=== PATIENT | male | born 1935 | race Caucasian/White ===

== ENCOUNTER 2017-09-15 22:45 | Inpatient (IN) | payer MEDICARE ==
[2017-09-15] MEDS ORDERED: ACETAMINOPHEN 325 MG TABLET. PO (23:45)
[2017-09-15] MEDS ORDERED: QUEtiapine 25 MG TABLET. PO (23:45)
[2017-09-15] MEDS ORDERED: METHYL SALICYLATE/MENTHOL TOPICAL OINTMENT 29GM TUBE. TP (23:45)
[2017-09-15] MEDS ORDERED: OLANZapine 2.5 MG TABLET PO (23:45)
[2017-09-15] MEDS ORDERED: MAG HYDROX/ALUMINUM HYD/SIMETH 30 ML ORAL.SUSP PO (23:45)
[2017-09-15] MEDS ORDERED: MAGNESIUM HYDROXIDE 2,400 MG/30 ML ORAL.SUSP. PO (23:45)
[2017-09-16] MEDS: IV DEXTROSE 5 %-0.45 % NACL 1,000 ML IV ×2 (00:51→14:06)
[2017-09-16 00:54] LABS: ADD MAN DIFF? NO
[2017-09-16 01:04] LABS: BASO % 1 % (0-3); EOS # 0.1 x10^3/uL (0.0-0.7); EOS % 2 % (0-3); HEMATOCRIT 35.9 % (39.0-53.0); HEMOGLOBIN 11.8 g/dL (13.0-17.5); LYMPH # 0.4 x10^3/uL (1.0-4.8); LYMPH % 8 % (24-48); MEAN CORPUSCULAR HEMOGLOBIN 31 pg (25-35); MEAN CORPUSCULAR HGB CONC 33 g/dL (31-37); MEAN CORPUSCULAR VOLUME 94 fL (79-100); MONO # 0.5 x10^3/uL (0.0-1.1); MONO % 11 % (0-9); NEUT # 3.5 x10^3uL (1.8-7.7); NEUT % 78 % (31-73); PLATELET COUNT 118 x10^3/uL (140-400); RED BLOOD COUNT 3.84 x10^6/uL (4.30-5.70); RED CELL DISTRIBUTION WIDTH 20.5 % (11.5-14.5); WHITE BLOOD COUNT 4.5 x10^3/uL (4.0-11.0)
[2017-09-16 01:26] LABS: ALBUMIN 3.1 g/dL (3.4-5.0); ALBUMIN/GLOBULIN RATIO 0.8 (1.0-1.7); ALK PHOS 82 U/L (46-116); ALT (SGPT) 17 U/L (16-63); ANION GAP 7 (6-14); AST (SGOT) 26 U/L (15-37); BLOOD UREA NITROGEN 14 mg/dL (8-26); BUN/CREATININE RATIO 16 (6-20); CALCIUM 8.5 mg/dL (8.5-10.1); CARBON DIOXIDE 29 mmol/L (21-32); CHLORIDE 106 mmol/L (98-107); CREATININE 0.9 mg/dL (0.7-1.3); GLUCOSE 108 mg/dL (70-99); POTASSIUM 4.2 mmol/L (3.5-5.1); SODIUM 142 mmol/L (136-145); TOTAL BILIRUBIN 1.1 mg/dL (0.2-1.0); TOTAL PROTEIN 6.9 g/dL (6.4-8.2)
[2017-09-16 02:53] LABS: MICROCYTOSIS SLIGHT; PLT ESTIMATE DECREASED (ADEQUATE); POIKILOCYTOSIS SLIGHT
[2017-09-16] MEDS: LEVOTHYROXINE 125 MCG TABLET PO (06:17)
[2017-09-16] MEDS: PANTOPRAZOLE 40 MG TABLET.DR. PO (07:30)
[2017-09-16] MEDS: CARVEDILOL 6.25 MG TABLET. PO ×2 (07:35→13:57)
[2017-09-16] MEDS: ASPIRIN 325 MG TABLET PO (07:35)
[2017-09-16] MEDS: CLOPIDOGREL BISULFATE 75 MG TABLET PO (07:36)
[2017-09-16] MEDS: FERROUS SULFATE 325 MG TABLET. PO (07:36)
[2017-09-16] MEDS: GABAPENTIN 300 MG CAPSULE. PO ×3 (07:36→20:48)
[2017-09-16] MEDS: LISINOPRIL 20 MG TABLET PO (07:36)
[2017-09-16] MEDS: FUROSEMIDE 20 MG TABLET PO (07:36)
[2017-09-16] MEDS: FINASTERIDE 5 MG TABLET. PO (07:37)
[2017-09-16] MEDS: SERTRALINE 50 MG TABLET. PO (07:37)
[2017-09-16] MEDS: QUEtiapine 25 MG TABLET. PO ×2 (07:37→13:56)
[2017-09-16] MEDS: CHOLECALCIFEROL (VITAMIN D3) 5,000 UNIT CAPSULE PO (07:37)
[2017-09-16] MEDS: OLANZapine IM 10 MG VIAL. IM ×3 (09:22→21:20)
[2017-09-16] MEDS ORDERED: DEXTROSE 50% 25 GM / 50ML DISP.SYRIN. IV (15:15)
[2017-09-16 16:54] LABS: POC GLUCOSE 87 mg/dL (70-99)
[2017-09-16] MEDS: INSULIN LISPRO 300 UNITS/3 ML INSULN.PEN. SQ (17:00)
[2017-09-16] MEDS: MIRTAZAPINE 7.5 MG TABLET. PO (20:48)
[2017-09-16] MEDS: ATORVASTATIN CALCIUM 40 MG TABLET. PO (20:48)
[2017-09-16] MEDS: QUEtiapine 50 MG TAB.ER.24H. PO (20:48)
[2017-09-16] MEDS: DONEPEZIL HCL 10 MG TABLET. PO (20:48)
[2017-09-16] MEDS: HEPARIN PF for SUB-Q USE 5,000 UNIT/0.5 ML VIAL. SQ (21:00)
[2017-09-16 21:13] LABS: MRSA BY PCR Negative (Negative)
[2017-09-16 21:20] LABS: POC GLUCOSE 97 mg/dL (70-99)
[2017-09-17] MEDS: IV DEXTROSE 5 %-0.45 % NACL 1,000 ML IV ×3 (00:12→20:12)
[2017-09-17] MEDS: OLANZapine IM 10 MG VIAL. IM ×2 (03:33→11:17)
[2017-09-17] MEDS: LEVOTHYROXINE 125 MCG TABLET PO (05:37)
[2017-09-17 06:18] LABS: ADD MAN DIFF? NO
[2017-09-17 06:21] LABS: BASO % 1 % (0-3); EOS # 0.2 x10^3/uL (0.0-0.7); EOS % 6 % (0-3); HEMATOCRIT 35.5 % (39.0-53.0); HEMOGLOBIN 11.5 g/dL (13.0-17.5); LYMPH # 0.7 x10^3/uL (1.0-4.8); LYMPH % 17 % (24-48); MEAN CORPUSCULAR HEMOGLOBIN 31 pg (25-35); MEAN CORPUSCULAR HGB CONC 32 g/dL (31-37); MEAN CORPUSCULAR VOLUME 95 fL (79-100); MONO # 0.5 x10^3/uL (0.0-1.1); MONO % 13 % (0-9); NEUT # 2.5 x10^3uL (1.8-7.7); NEUT % 63 % (31-73); PLATELET COUNT 104 x10^3/uL (140-400); RED BLOOD COUNT 3.74 x10^6/uL (4.30-5.70); RED CELL DISTRIBUTION WIDTH 20.3 % (11.5-14.5)
[2017-09-17 06:37] LABS: ANION GAP 6 (6-14); BLOOD UREA NITROGEN 11 mg/dL (8-26); CALCIUM 8.6 mg/dL (8.5-10.1); CARBON DIOXIDE 32 mmol/L (21-32); CHLORIDE 106 mmol/L (98-107); CREATININE 0.8 mg/dL (0.7-1.3); GFR 92.8; GLUCOSE 111 mg/dL (70-99); POTASSIUM 3.5 mmol/L (3.5-5.1); SODIUM 144 mmol/L (136-145)
[2017-09-17] MEDS: PANTOPRAZOLE 40 MG TABLET.DR. PO (07:30)
[2017-09-17] MEDS: ASPIRIN 325 MG TABLET PO (08:00)
[2017-09-17] MEDS: CLOPIDOGREL BISULFATE 75 MG TABLET PO (08:00)
[2017-09-17] MEDS: FERROUS SULFATE 325 MG TABLET. PO (08:00)
[2017-09-17] MEDS: INSULIN LISPRO 300 UNITS/3 ML INSULN.PEN. SQ ×3 (08:00→17:00)
[2017-09-17] MEDS: CARVEDILOL 6.25 MG TABLET. PO ×2 (08:00→12:14)
[2017-09-17] MEDS: FUROSEMIDE 20 MG TABLET PO (08:36)
[2017-09-17] MEDS: GABAPENTIN 300 MG CAPSULE. PO ×3 (08:37→19:15)
[2017-09-17] MEDS: LISINOPRIL 20 MG TABLET PO (08:37)
[2017-09-17] MEDS: FINASTERIDE 5 MG TABLET. PO (08:37)
[2017-09-17] MEDS: CHOLECALCIFEROL (VITAMIN D3) 5,000 UNIT CAPSULE PO (08:38)
[2017-09-17] MEDS: QUEtiapine 25 MG TABLET. PO ×2 (08:38→12:14)
[2017-09-17] MEDS: SERTRALINE 50 MG TABLET. PO (08:38)
[2017-09-17] MEDS: HEPARIN PF for SUB-Q USE 5,000 UNIT/0.5 ML VIAL. SQ ×2 (09:00→20:35)
[2017-09-17 13:43] LABS: POC GLUCOSE 108 mg/dL (70-99)
[2017-09-17 13:43] LABS: POC GLUCOSE 114 mg/dL (70-99)
[2017-09-17 17:05] LABS: POC GLUCOSE 113 mg/dL (70-99)
[2017-09-17] MEDS: DONEPEZIL HCL 10 MG TABLET. PO (19:15)
[2017-09-17] MEDS: ATORVASTATIN CALCIUM 40 MG TABLET. PO (19:15)
[2017-09-17] MEDS: MIRTAZAPINE 7.5 MG TABLET. PO (19:16)
[2017-09-17] MEDS: QUEtiapine 50 MG TAB.ER.24H. PO (19:16)
[2017-09-17 20:39] LABS: POC GLUCOSE 112 mg/dL (70-99)
[2017-09-18 04:17] LABS: ADD MAN DIFF? NO
[2017-09-18 04:29] LABS: BASO # 0.1 x10^3/uL (0.0-0.2); BASO % 1 % (0-3); EOS # 0.1 x10^3/uL (0.0-0.7); EOS % 3 % (0-3); HEMATOCRIT 32.1 % (39.0-53.0); HEMOGLOBIN 10.7 g/dL (13.0-17.5); LYMPH # 0.6 x10^3/uL (1.0-4.8); LYMPH % 13 % (24-48); MEAN CORPUSCULAR HEMOGLOBIN 31 pg (25-35); MEAN CORPUSCULAR HGB CONC 34 g/dL (31-37); MEAN CORPUSCULAR VOLUME 94 fL (79-100); MONO # 0.7 x10^3/uL (0.0-1.1); MONO % 14 % (0-9); NEUT # 3.3 x10^3uL (1.8-7.7); NEUT % 70 % (31-73); PLATELET COUNT 114 x10^3/uL (140-400); RED BLOOD COUNT 3.42 x10^6/uL (4.30-5.70); RED CELL DISTRIBUTION WIDTH 19.8 % (11.5-14.5); WHITE BLOOD COUNT 4.7 x10^3/uL (4.0-11.0)
[2017-09-18 04:51] LABS: ALBUMIN 2.8 g/dL (3.4-5.0); ALBUMIN/GLOBULIN RATIO 0.8 (1.0-1.7); ALK PHOS 80 U/L (46-116); ALT (SGPT) 15 U/L (16-63); ANION GAP 6 (6-14); AST (SGOT) 21 U/L (15-37); BLOOD UREA NITROGEN 9 mg/dL (8-26); BUN/CREATININE RATIO 11 (6-20); CALCIUM 8.4 mg/dL (8.5-10.1); CARBON DIOXIDE 31 mmol/L (21-32); CHLORIDE 106 mmol/L (98-107); CREATININE 0.8 mg/dL (0.7-1.3); GFR 92.8; GLUCOSE 117 mg/dL (70-99); POTASSIUM 3.3 mmol/L (3.5-5.1); SODIUM 143 mmol/L (136-145); TOTAL BILIRUBIN 1.2 mg/dL (0.2-1.0); TOTAL PROTEIN 6.3 g/dL (6.4-8.2)
[2017-09-18] MEDS: LEVOTHYROXINE 125 MCG TABLET PO (07:00)
[2017-09-18] MEDS: PANTOPRAZOLE 40 MG TABLET.DR. PO (07:30)
[2017-09-18] MEDS: ASPIRIN 325 MG TABLET PO (08:00)
[2017-09-18] MEDS: CARVEDILOL 6.25 MG TABLET. PO ×2 (08:00→15:49)
[2017-09-18] MEDS: CLOPIDOGREL BISULFATE 75 MG TABLET PO (08:00)
[2017-09-18] MEDS: FERROUS SULFATE 325 MG TABLET. PO (08:00)
[2017-09-18 08:23] LABS: POC GLUCOSE 112 mg/dL (70-99)
[2017-09-18] MEDS: FINASTERIDE 5 MG TABLET. PO (08:26)
[2017-09-18] MEDS: QUEtiapine 25 MG TABLET. PO ×2 (08:26→15:49)
[2017-09-18] MEDS: LISINOPRIL 20 MG TABLET PO (08:26)
[2017-09-18] MEDS: FUROSEMIDE 20 MG TABLET PO (08:26)
[2017-09-18] MEDS: GABAPENTIN 300 MG CAPSULE. PO ×3 (08:26→21:00)
[2017-09-18] MEDS: CHOLECALCIFEROL (VITAMIN D3) 5,000 UNIT CAPSULE PO (08:27)
[2017-09-18] MEDS: SERTRALINE 50 MG TABLET. PO (08:27)
[2017-09-18] MEDS: INSULIN LISPRO 300 UNITS/3 ML INSULN.PEN. SQ ×3 (08:28→16:15)
[2017-09-18] MEDS: IV DEXTROSE 5 %-0.45 % NACL 1,000 ML IV (08:30)
[2017-09-18] MEDS: HEPARIN PF for SUB-Q USE 5,000 UNIT/0.5 ML VIAL. SQ ×2 (08:42→22:07)
[2017-09-18] MEDS: POTASSIUM CL 40MEQ D5-0.45NACL 1,000 ML IV ×2 (10:29→21:03)
[2017-09-18 11:29] LABS: POC GLUCOSE 102 mg/dL (70-99)
[2017-09-18] MEDS: PANTOPRAZOLE IV PUSH 40 MG VIAL. IVP (12:26)
[2017-09-18 16:16] LABS: POC GLUCOSE 110 mg/dL (70-99)
[2017-09-18] MEDS: LIDOCAINE (700MG/PATCH) PATCH. TD (16:38)
[2017-09-18] MEDS: OLANZapine IM 10 MG VIAL. IM (20:35)
[2017-09-18] MEDS: MIRTAZAPINE 7.5 MG TABLET. PO (21:00)
[2017-09-18] MEDS: DONEPEZIL HCL 10 MG TABLET. PO (21:00)
[2017-09-18] MEDS: PATCH REMOVAL. MC (21:00)
[2017-09-18] MEDS: QUEtiapine 50 MG TAB.ER.24H. PO (21:00)
[2017-09-18] MEDS: ATORVASTATIN CALCIUM 40 MG TABLET. PO (21:00)
[2017-09-18] MEDS: ZIPRASIDONE IM 20 MG VIAL. IM (21:44)
[2017-09-19 05:34] LABS: HEMATOCRIT 33.4 % (39.0-53.0); HEMOGLOBIN 11.1 g/dL (13.0-17.5); MEAN CORPUSCULAR HEMOGLOBIN 31 pg (25-35); MEAN CORPUSCULAR HGB CONC 33 g/dL (31-37); MEAN CORPUSCULAR VOLUME 94 fL (79-100); PLATELET COUNT 113 x10^3/uL (140-400); RED BLOOD COUNT 3.56 x10^6/uL (4.30-5.70); RED CELL DISTRIBUTION WIDTH 19.3 % (11.5-14.5); WHITE BLOOD COUNT 5.3 x10^3/uL (4.0-11.0)
[2017-09-19 06:00] LABS: ALBUMIN 2.8 g/dL (3.4-5.0); ALBUMIN/GLOBULIN RATIO 0.8 (1.0-1.7); ALK PHOS 81 U/L (46-116); ALT (SGPT) 14 U/L (16-63); ANION GAP 6 (6-14); AST (SGOT) 21 U/L (15-37); BLOOD UREA NITROGEN 7 mg/dL (8-26); BUN/CREATININE RATIO 9 (6-20); CALCIUM 8.6 mg/dL (8.5-10.1); CARBON DIOXIDE 32 mmol/L (21-32); CHLORIDE 107 mmol/L (98-107); CREATININE 0.8 mg/dL (0.7-1.3); GFR 92.8; GLUCOSE 105 mg/dL (70-99); POTASSIUM 3.9 mmol/L (3.5-5.1); SODIUM 145 mmol/L (136-145); TOTAL BILIRUBIN 1.2 mg/dL (0.2-1.0); TOTAL PROTEIN 6.4 g/dL (6.4-8.2)
[2017-09-19] MEDS: LEVOTHYROXINE 125 MCG TABLET PO (07:00)
[2017-09-19] MEDS: PANTOPRAZOLE IV PUSH 40 MG VIAL. IVP (07:30)
[2017-09-19] MEDS: FERROUS SULFATE 325 MG TABLET. PO (08:00)
[2017-09-19] MEDS: INSULIN LISPRO 300 UNITS/3 ML INSULN.PEN. SQ ×3 (08:00→17:00)
[2017-09-19] MEDS: CARVEDILOL 6.25 MG TABLET. PO ×2 (08:00→16:43)
[2017-09-19] MEDS: CLOPIDOGREL BISULFATE 75 MG TABLET PO (08:00)
[2017-09-19] MEDS: ASPIRIN 325 MG TABLET PO (08:00)
[2017-09-19] MEDS: POTASSIUM CL 40MEQ D5-0.45NACL 1,000 ML IV ×2 (08:10→16:00)
[2017-09-19] MEDS: LISINOPRIL 20 MG TABLET PO (08:12)
[2017-09-19] MEDS: QUEtiapine 25 MG TABLET. PO ×2 (08:12→13:29)
[2017-09-19] MEDS: GABAPENTIN 300 MG CAPSULE. PO ×2 (08:12→14:00)
[2017-09-19] MEDS: FINASTERIDE 5 MG TABLET. PO (08:12)
[2017-09-19] MEDS: FUROSEMIDE 20 MG TABLET PO (08:12)
[2017-09-19] MEDS: CHOLECALCIFEROL (VITAMIN D3) 5,000 UNIT CAPSULE PO (08:13)
[2017-09-19] MEDS: SERTRALINE 50 MG TABLET. PO ×2 (08:13→13:31)
[2017-09-19] MEDS: LIDOCAINE (700MG/PATCH) PATCH. TD (09:00)
[2017-09-19] MEDS: HEPARIN PF for SUB-Q USE 5,000 UNIT/0.5 ML VIAL. SQ (09:00)
[2017-09-19] MEDS: ZIPRASIDONE IM 20 MG VIAL. IM (12:00)
[2017-09-19] MEDS: OLANZapine 2.5 MG TABLET PO (13:29)
[2017-09-19 17:05] LABS: POC GLUCOSE 104 mg/dL (70-99)
[2017-09-19 17:05] LABS: POC GLUCOSE 101 mg/dL (70-99)
[2017-09-19] MEDS: PATCH REMOVAL. MC (21:00)
[2017-09-20] MEDS: DONEPEZIL HCL 10 MG TABLET. PO ×2 (00:51→20:37)
[2017-09-20] MEDS: ATORVASTATIN CALCIUM 40 MG TABLET. PO ×2 (00:51→20:37)
[2017-09-20] MEDS: MIRTAZAPINE 7.5 MG TABLET. PO ×2 (00:51→20:37)
[2017-09-20] MEDS: QUEtiapine 25 MG TABLET. PO ×5 (00:52→20:37)
[2017-09-20] MEDS: GABAPENTIN 300 MG CAPSULE. PO ×4 (00:52→20:37)
[2017-09-20 01:03] LABS: POC GLUCOSE 100 mg/dL (70-99)
[2017-09-20] MEDS: HEPARIN PF for SUB-Q USE 5,000 UNIT/0.5 ML VIAL. SQ ×3 (01:10→20:47)
[2017-09-20] MEDS: POTASSIUM CL 40MEQ D5-0.45NACL 1,000 ML IV ×3 (02:00→21:26)
[2017-09-20 06:09] LABS: ANION GAP 8 (6-14); BLOOD UREA NITROGEN 8 mg/dL (8-26); CARBON DIOXIDE 29 mmol/L (21-32); CHLORIDE 107 mmol/L (98-107); CREATININE 0.8 mg/dL (0.7-1.3); GFR 92.8; GLUCOSE 91 mg/dL (70-99); MAGNESIUM 1.8 mg/dL (1.8-2.4); POTASSIUM 3.7 mmol/L (3.5-5.1); SODIUM 144 mmol/L (136-145)
[2017-09-20] MEDS: LEVOTHYROXINE 125 MCG TABLET PO (06:21)
[2017-09-20 07:46] LABS: POC GLUCOSE 83 mg/dL (70-99)
[2017-09-20] MEDS: INSULIN LISPRO 300 UNITS/3 ML INSULN.PEN. SQ ×3 (08:00→17:00)
[2017-09-20] MEDS: LIDOCAINE (700MG/PATCH) PATCH. TD (09:00)
[2017-09-20] MEDS: PANTOPRAZOLE IV PUSH 40 MG VIAL. IVP (10:22)
[2017-09-20] MEDS: FINASTERIDE 5 MG TABLET. PO (10:22)
[2017-09-20] MEDS: LISINOPRIL 20 MG TABLET PO (10:23)
[2017-09-20] MEDS: ASPIRIN 325 MG TABLET PO (10:24)
[2017-09-20] MEDS: CHOLECALCIFEROL (VITAMIN D3) 5,000 UNIT CAPSULE PO (10:24)
[2017-09-20] MEDS: FERROUS SULFATE 325 MG TABLET. PO (10:24)
[2017-09-20] MEDS: CARVEDILOL 6.25 MG TABLET. PO ×2 (10:25→17:00)
[2017-09-20] MEDS: CLOPIDOGREL BISULFATE 75 MG TABLET PO (10:29)
[2017-09-20] MEDS: FUROSEMIDE 20 MG TABLET PO (11:16)
[2017-09-20 12:22] LABS: POC GLUCOSE 91 mg/dL (70-99)
[2017-09-20 16:39] LABS: POC GLUCOSE 92 mg/dL (70-99)
[2017-09-20 19:41] LABS: POC GLUCOSE 100 mg/dL (70-99)
[2017-09-20] MEDS: PATCH REMOVAL. MC (20:37)
[2017-09-21 04:58] LABS: HEMATOCRIT 33.6 % (39.0-53.0); HEMOGLOBIN 11.1 g/dL (13.0-17.5); MEAN CORPUSCULAR HEMOGLOBIN 31 pg (25-35); MEAN CORPUSCULAR HGB CONC 33 g/dL (31-37); MEAN CORPUSCULAR VOLUME 95 fL (79-100); PLATELET COUNT 130 x10^3/uL (140-400); RED BLOOD COUNT 3.55 x10^6/uL (4.30-5.70); RED CELL DISTRIBUTION WIDTH 18.7 % (11.5-14.5); WHITE BLOOD COUNT 3.5 x10^3/uL (4.0-11.0)
[2017-09-21 05:16] LABS: ALBUMIN 2.6 g/dL (3.4-5.0); ALBUMIN/GLOBULIN RATIO 0.7 (1.0-1.7); ALK PHOS 85 U/L (46-116); ALT (SGPT) 15 U/L (16-63); ANION GAP 7 (6-14); AST (SGOT) 21 U/L (15-37); BLOOD UREA NITROGEN 7 mg/dL (8-26); BUN/CREATININE RATIO 10 (6-20); CALCIUM 8.1 mg/dL (8.5-10.1); CARBON DIOXIDE 31 mmol/L (21-32); CHLORIDE 108 mmol/L (98-107); CREATININE 0.7 mg/dL (0.7-1.3); GFR 108.2; GLUCOSE 89 mg/dL (70-99); POTASSIUM 3.9 mmol/L (3.5-5.1); SODIUM 146 mmol/L (136-145); TOTAL BILIRUBIN 0.8 mg/dL (0.2-1.0); TOTAL PROTEIN 6.3 g/dL (6.4-8.2)
[2017-09-21] MEDS: LEVOTHYROXINE 125 MCG TABLET PO (05:57)
[2017-09-21] MEDS: POTASSIUM CL 40MEQ D5-0.45NACL 1,000 ML IV (08:00)
[2017-09-21] MEDS: INSULIN LISPRO 300 UNITS/3 ML INSULN.PEN. SQ ×2 (08:00→12:00)
[2017-09-21] MEDS: CARVEDILOL 6.25 MG TABLET. PO (08:00)
[2017-09-21] MEDS: CHOLECALCIFEROL (VITAMIN D3) 5,000 UNIT CAPSULE PO (08:26)
[2017-09-21] MEDS: ASPIRIN 325 MG TABLET PO (08:26)
[2017-09-21] MEDS: FUROSEMIDE 20 MG TABLET PO (08:27)
[2017-09-21] MEDS: CLOPIDOGREL BISULFATE 75 MG TABLET PO (08:27)
[2017-09-21] MEDS: FINASTERIDE 5 MG TABLET. PO (08:28)
[2017-09-21] MEDS: SERTRALINE 50 MG TABLET. PO (08:28)
[2017-09-21] MEDS: GABAPENTIN 300 MG CAPSULE. PO ×2 (08:28→14:00)
[2017-09-21] MEDS: LISINOPRIL 20 MG TABLET PO (08:29)
[2017-09-21] MEDS: FERROUS SULFATE 325 MG TABLET. PO (08:29)
[2017-09-21] MEDS: QUEtiapine 25 MG TABLET. PO ×2 (08:29→15:59)
[2017-09-21] MEDS: LANSOPRAZOLE 30 MG TAB.RAP.DR PO (08:29)
[2017-09-21] MEDS: HEPARIN PF for SUB-Q USE 5,000 UNIT/0.5 ML VIAL. SQ (08:30)
[2017-09-21] MEDS: LIDOCAINE (700MG/PATCH) PATCH. TD (08:44)
[2017-09-21 16:46] LABS: POC GLUCOSE 116 mg/dL (70-99)
[2017-09-21 16:46] LABS: POC GLUCOSE 97 mg/dL (70-99)
== END 2017-09-21 16:00 | DRG 177 ==
LOC: 5 SOUTH 22:45 → 6 SOUTH 22:46
PROC: 0BJ08ZZ Inspection of Tracheobronchial Tree, Via Natural or Artificial Opening Endoscopic (ICD-10-PCS; principal; 2017-09-19)
DX: J69.0 Pneumonitis due to inhalation of food and vomit (principal); G93.41 Metabolic encephalopathy; I48.91 Unspecified atrial fibrillation; I47.1 Supraventricular tachycardia; R13.12 Dysphagia, oropharyngeal phase; I11.0 Hypertensive heart disease with heart failure; I50.9 Heart failure, unspecified; F23 Brief psychotic disorder; Z78.1 Physical restraint status; C61 Malignant neoplasm of prostate; G30.9 Alzheimer's disease, unspecified; F01.50 Vascular dementia, unspecified severity, without behavioral disturbance, psychotic disturbance, mood disturbance, and anxiety; E03.9 Hypothyroidism, unspecified; E78.5 Hyperlipidemia, unspecified; E87.6 Hypokalemia; F02.80 Dementia in other diseases classified elsewhere, unspecified severity, without behavioral disturbance, psychotic disturbance, mood disturbance, and anxiety; F32.9 Major depressive disorder, single episode, unspecified; F41.9 Anxiety disorder, unspecified; F63.9 Impulse disorder, unspecified; F99 Mental disorder, not otherwise specified; I25.10 Atherosclerotic heart disease of native coronary artery without angina pectoris; I69.311 Memory deficit following cerebral infarction; Z85.46 Personal history of malignant neoplasm of prostate; Z86.718 Personal history of other venous thrombosis and embolism; Z87.891 Personal history of nicotine dependence; Z95.1 Presence of aortocoronary bypass graft; Z95.5 Presence of coronary angioplasty implant and graft; Z88.0 Allergy status to penicillin; Z88.7 Allergy status to serum and vaccine; Z88.8 Allergy status to other drugs, medicaments and biological substances; Z95.810 Presence of automatic (implantable) cardiac defibrillator; Z95.0 Presence of cardiac pacemaker
CPT/HCPCS: 36415; 71045; 80048; 80053; 82962; 83735; 85025; 85027; 87641; 92526-GN; 92610-GN; 93005; 97163-GP; 97166-GO; 97530-GO; 97530-GP; C9113; J1815; J2060; J3486; J3490; J7042